=== PATIENT | male | born 1990 ===

== ENCOUNTER 2018-09-07 08:37 | Emergency (ER) | payer OTHER ==
[2018-09-07 08:44] VITALS: BMI 25.7
[2018-09-07 08:45] VITALS: TEMP 98.4
--- NOTE | 2018-09-07 09:27 | ED PDOC ---
HPI: Skin/Bite Injury Time Seen by Provider: 09/07/18 09:09 Chief Complaint (Nursing): Abnormal Skin Integrity Chief Complaint (Provider): Rash History Per: Patient History/Exam Limitations: no limitations Quality Of Symptoms: Painful, Itching, Draining Additional Complaint(s): Pt reports itchy/painful rash in between buttocks X 2 weeks, feels like a ball then opens when he scratches. States girlfriend was dx with possible herpes recently. Denies fever. Past Medical History Reviewed: Nursing Documentation, Vital Signs Vital Signs: Last Vital Signs Temp 98.4 F 09/07/18 08:44 Pulse 59 L 09/07/18 08:44 Resp 17 09/07/18 08:44 BP 113/74 09/07/18 08:44 Pulse Ox 99 09/07/18 08:44 - Medical History PMH: No Chronic Diseases - Family History Family History: States: Unknown Family Hx - Living Arrangements Living Arrangements: Alone - Social History Current smoker - smoking cessation education provided: No Alcohol: None - Immunization History Hx Tetanus Toxoid Vaccination: No Hx Influenza Vaccination: No Hx Pneumococcal Vaccination: No - Home Medications Home Medications: Ambulatory Orders Medication Instructions Recorded Acyclovir [Zovirax] 400 mg PO TID #21 tab 09/07/18 - Allergies Allergies/Adverse Reactions: Allergies Allergy/AdvReac Type Severity Reaction Status Date / Time No Known Allergies Allergy Verified 09/07/18 09:11 Review of Systems Constitutional: Negative for: Fever, Chills Respiratory: Negative for: Cough Gastrointestinal: Negative for: Abdominal Pain Genitourinary Male: Positive for: Rash. Negative for: Dysuria, Frequency, Incontinence, Hematuria, Penile Discharge, Scrotal Pain, Penile Pain Skin: Positive for: Rash, Lesions Physical Exam - Reviewed Nursing Documentation Reviewed: Yes Vital Signs Reviewed: Yes - Physical Exam Appears: Positive for: Well, No Acute Distress Skin: Positive for: Normal Color, Warm, Dry, Rash ((sprue knocker: Rian RN) 2 small abrasions upper middle buttocks, dry, no induration, no TTP, no fluctuance, no vesicles, no mass) Eye Exam: Positive for: Normal appearance, EOMI, PERRL Lymphatic: Negative for: Adenopathy, Inguinal Node Tenderness Neurologic/Psych: Positive for: Alert, Oriented - ECG O2 Sat by Pulse Oximetry: 99 Medical Decision Making Medical Decision Makin yo male with rash on buttocks. - Rx Acyclovir Disposition - Clinical Impression Clinical Impression: Rash - Disposition Referrals: [facility] [Outside] Disposition: Routine/Home Disposition Time: 09:31 Condition: GOOD Prescriptions: Acyclovir [Zovirax] 400 mg PO TID #21 tab Instructions: Genital Herpes, Skin Rash Forms: [facility] (Brazilian) Print Language: MAURITANIAN
[2018-09-07 09:48] VITALS: BP 116/72; PULSE 62; RESP 16
[2018-09-11 22:22] VITALS: O2SAT 99
== END 2018-09-07 09:48 | disposition home or self-care (01) ==
LOC: H.ER 08:37
DX: B00.9 Herpesviral infection, unspecified (principal)